=== PATIENT | male | born 1970 | race African-American/Black ===

== ENCOUNTER 2016-11-19 18:16 | Emergency (ER) | payer SELFPAY ==
--- NOTE | 2016-11-19 18:53 | ERRECORD ---
[facility] EMERGENCY RECORD HPI FALL (20:44 ALMO) CHIEF COMPLAINT: Patient presents for evaluation of fall, from standing, landing on both arms. HISTORIAN: History provided by patient. LOCATION: No localizing symptoms. TIME COURSE: Sudden onset of symptoms, 2, days ago, Symptoms have resolved. SEVERITY: NO symptoms. ASSOCIATED WITH: Denies any other complaints. EXACERBATED BY: Patient's condition exacerbated by nothing. RELIEVED BY: Patient's condition relieved by nothing. ROS (20:46 ALMO) CONSTITUTIONAL: Negative constitutional review of systems. EYES: Negative eye review of systems. ENT: Negative ears, nose, throat review of systems. CARDIOVASCULAR: Negative cardiovascular review of systems. RESPIRATORY: Negative respiratory review of systems. GI: Negative gastrointestinal review of systems. MUSCULOSKELETAL: Negative musculoskeletal review of systems. NEUROLOGIC: Negative neurologic review of systems. ENDOCRINE: Negative endocrine review of systems. HEMO/LYMPHATIC: Normal hematologic/lymphatic system review. ALLERGIC/IMMUNOLOGIC: Normal allergy/immunologic system review. NOTES: All systems reviewed, negative except as described above. PAST MEDICAL HISTORY (18:24 MDEB) MEDICAL HISTORY: No past medical history, Flu vaccine not up to date, Tetanus immunization up to date, Pneumococcal vaccine not up to date, No past medical history. MALE SURGICAL HISTORY: Patient has no surgical history, Patient has no surgical history. PSYCHIATRIC HISTORY: No previous psychiatric history. SOCIAL HISTORY: Patient drinks socially, every week, Patient denies drug use, Patient currently uses tobacco, smokes cigarettes, Lives at home, with family, Patient drinks socially, every week, Patient denies drug use, Patient currently uses tobacco, smokes cigarettes, daily, Patient smokes 1/2 packs per day, Lives at home, with family. KNOWN ALLERGIES No Known Drug Allergies (Unconfirmed) CURRENT MEDICATIONS No recorded medications VITAL SIGNS (18:22 MDEB) VITAL SIGNS: BP: 162/97, Pulse: 78, Resp: 20, Temp: 99.2 (Tympanic), Pain: 0, O2 sat: 98 on Room Air, Time: 11/19/2016 18:22. PHYSICAL EXAM (20:47 ALMO) &a-1R&a+25V*p+0X*m2080N*c202B*c15G*c2P*p-0X&a-25V&a+1R Name: Onel Nunez : 1970 [facility] MedRec: [id number] AcctNum: [id number] Prepared: FriDec 03, 2016 18:46 by Interface Page 1 of 2 pMD [facility] EMERGENCY RECORD CONSTITUTIONAL: Vital signs reviewed. HEAD: Head exam normal. EYES: Eye exam normal. ENT: ENT exam normal. NECK: Neck exam normal. RESPIRATORY CHEST: Respiratory and chest exam normal. CARDIOVASCULAR: Cardiovascular assessment normal. ABDOMEN MALE: Abdominal exam normal. BACK: Back exam normal. UPPER EXTREMITY: Upper extremity exam normal. LOWER EXTREMITY: Lower extremity exam normal. SKIN: Skin exam normal. PSYCHIATRIC: Psychiatric exam included findings of patient oriented to person place and time. PROBLEM LIST No recorded problems DIAGNOSIS (18:46 GDUN) FINAL: PRIMARY: Well exam. PRESCRIPTION No recorded prescriptions DISPOSITION PATIENT: Disposition Type: Discharge, Disposition: *Discharge Home. (18:34 GDUN) Patient left the department. (18:48 GDUN) Singh: ROSSY=MD Hector, Joey GDUN=FRANK Donovan, Wiley ZAVALETAEB=FRANK Villafana, Kendy &a-1R&a+25V*p+0X*q8735L*c202B*c15G*c2P*p-0X&a-25V&a+1R Name: Onel Nunez : 1970 6 MedRec: [id number] AcctNum: [id number] Prepared: FriDec 03, 2016 18:46 by Interface Page 2 of 2 pMD MTDD
--- NOTE | 2016-11-19 19:02 | PICIS ---
[facility] EMERGENCY RECORD TRIAGE (18:24 MDEB) PATIENT: NAME: Onel Nunez, AGE: 46, GENDER: male, : Fri1970, TIME OF GREET: FriNov 19, 2016 18:17, PREFERRED LANGUAGE: Belgian, RACE: Black or , ETHNICITY: Not or , FALL RISK: NO, ECODE BILLING MAP: [facility], SSN: [id number], Zip Code: [address], KG WEIGHT: 70.31, PHONE: , , , PERSON ID: [id number], PCP: NO PCP. (18:24 MDEB) TRIAGE NOTES: NEEDS RELEASE TO GO BACK TO WORK AT [employer] - PT FELL ON FRIDAY - DENIES LOC OR PAIN TODAY. (18:24 MDEB) COMPLAINT: FALL. (18:24 MDEB) ADMISSION: URGENCY: 4 Non Urgent, ADMISSION SOURCE: Home, TRANSPORT: Walk-in, BED: TRIAGE. (18:24 MDEB) PAIN: Notes: DENIES. (18:24 MDEB) TRIAGE SCREENING: Patient denies suicidal ideation, Patient denies presence of domestic violence. (18:24 MDEB) PROVIDERS: TRIAGE NURSE: Kendy Villafana RN. (18:24 MDEB) VITAL SIGNS: BP 162/97, Pulse 78, Resp 20, Temp 99.2, (Tympanic), Pain 0, O2 Sat 98, on Room Air, Time 11/19/2016 18:22. (18:22 MDEB) PREVIOUS VISIT ALLERGIES: No Known Drug Allergies. (18:24 MDEB) KNOWN ALLERGIES No Known Drug Allergies (Unconfirmed) CURRENT MEDICATIONS No recorded medications VITAL SIGNS (18:22 MDEB) VITAL SIGNS: BP: 162/97, Pulse: 78, Resp: 20, Temp: 99.2 (Tympanic), Pain: 0, O2 sat: 98 on Room Air, Time: 11/19/2016 18:22. NURSING ASSESSMENT: HEAD-TO-TOE (18:33 MDEB) CONSTITUTIONAL: Patient arrives ambulatory, Gait steady, History obtained from patient, Patient appears comfortable, Patient cooperative, Patient alert, Oriented to person, place and time, Skin warm, Skin dry, Skin normal in color, Mucous membranes pink, Mucous membranes moist, Patient is well-groomed, Patient complains of NEEDS NOTE TO GO TO WORK, PT REPORTED FALLING ON [employer] PROPERTY ON FRIDAY, THEY REQUIRE A WORK RELEASE FOR HIM TO RETURN TO WORK. PAIN: Patient rates pain as 0 out of 10, REPORTS NO LOC AT TIME. DENIES PAIN. BRUISING OR CONTUSIONS. SKIN: Skin assessment findings include skin warm, Skin dry, Skin normal in color. ENT: Ear assessment findings include ear normal to inspection, Nasal assessment findings include nose normal to inspection, Mouth and throat assessment findings include mouth inspection normal. NECK: Neck assessment findings include trachea midline. RESPIRATORY/CHEST: Respiratory assessment findings include &a-1R&a+25V*p+0X*w0184U*c202B*c15G*c2P*p-0X&a-25V&a+1R Name: Onel Nunez : 1970 M46 MedRec: [id number] AcctNum: [id number] Prepared: Rebecca Dec 03, 2016 18:46 by Interface Page 1 of [address] [facility] EMERGENCY RECORD respiratory effort easy, Respirations regular, Conversing normally, Neck and chest exam findings include trachea midline, Chest expansion equal, Chest movement symmetrical. CARDIOVASCULAR: Cardiovascular assessment findings include heart rate normal. ABDOMEN: Abdomen assessment findings include abdomen symmetrical, Abdomen soft. GENITOURINARY MALE: Notes: DEFERRED. LEFT UPPER EXTREMITY: Left upper extremity assessment findings include capillary refill less than 2 seconds, Skin color normal to hand, Skin temperature to hand warm, Distal sensation intact, Muscle tone normal. RIGHT UPPER EXTREMITY: Right upper extremity assessment findings include capillary refill less than 2 seconds, Skin color normal to hand, Skin temperature to hand warm, Distal sensation intact, Muscle tone normal. LEFT LOWER EXTREMITY: Left lower extremity assessment findings include capillary refill less than 2 seconds, Skin color normal, Skin temperature warm, Distal sensation intact, Muscle tone normal. RIGHT LOWER EXTREMITY: Right lower extremity assessment findings include capillary refill less than 2 seconds, Skin color normal, Skin temperature warm, Distal sensation intact, Muscle tone normal. PSYCH/SOCIAL: Psychiatric/social assessment findings include affect normal. NOTES: Emotional support needed and given, Patient tolerated procedure well. SAFETY: Cart/Stretcher in lowest position, Call light within reach, Hospital ID band on. NURSING PROCEDURE: DISCHARGE NOTE (18:51 MDEB) DISCHARGE: Patient discharged to home, ambulating without assistance, driving self, unaccompanied, Summary of Care printed/ provided, Patient requested and was provided an electronic copy of Discharge Instructions, Transition record given to patient, Discharge instructions given to patient, Above person(s) verbalized understanding of discharge instructions and follow-up care, Patient treated and evaluated by physician. BELONGINGS: Belongings remain with patient, Valuables remain with patient. NOTES: Emotional support needed and given, Patient tolerated procedure well. HPI FALL (20:44 ALMO) CHIEF COMPLAINT: Patient presents for evaluation of fall, from standing, landing on both arms. HISTORIAN: History provided by patient. LOCATION: No localizing symptoms. TIME COURSE: Sudden onset of symptoms, 2, days ago, Symptoms have resolved. SEVERITY: NO symptoms. ASSOCIATED WITH: Denies any other complaints. EXACERBATED BY: &a-1R&a+25V*p+0X*q8283K*c202B*c15G*c2P*p-0X&a-25V&a+1R Name: Onel Nunez : 1970 6 MedRec: [id number] AcctNum: [id number] Prepared: Rebecca Dec 03, 2016 18:46 by Interface Page 2 of [address] [facility] EMERGENCY RECORD Patient's condition exacerbated by nothing. RELIEVED BY: Patient's condition relieved by nothing. ROS (20:46 ALMO) CONSTITUTIONAL: Negative constitutional review of systems. EYES: Negative eye review of systems. ENT: Negative ears, nose, throat review of systems. CARDIOVASCULAR: Negative cardiovascular review of systems. RESPIRATORY: Negative respiratory review of systems. GI: Negative gastrointestinal review of systems. MUSCULOSKELETAL: Negative musculoskeletal review of systems. NEUROLOGIC: Negative neurologic review of systems. ENDOCRINE: Negative endocrine review of systems. HEMO/LYMPHATIC: Normal hematologic/lymphatic system review. ALLERGIC/IMMUNOLOGIC: Normal allergy/immunologic system review. NOTES: All systems reviewed, negative except as described above. PAST MEDICAL HISTORY (18:24 MDEB) MEDICAL HISTORY: No past medical history, Flu vaccine not up to date, Tetanus immunization up to date, Pneumococcal vaccine not up to date, No past medical history. MALE SURGICAL HISTORY: Patient has no surgical history, Patient has no surgical history. PSYCHIATRIC HISTORY: No previous psychiatric history. SOCIAL HISTORY: Patient drinks socially, every week, Patient denies drug use, Patient currently uses tobacco, smokes cigarettes, Lives at home, with family, Patient drinks socially, every week, Patient denies drug use, Patient currently uses tobacco, smokes cigarettes, daily, Patient smokes 1/2 packs per day, Lives at home, with family. PHYSICAL EXAM (20:47 ALMO) CONSTITUTIONAL: Vital signs reviewed. HEAD: Head exam normal. EYES: Eye exam normal. ENT: ENT exam normal. NECK: Neck exam normal. RESPIRATORY CHEST: Respiratory and chest exam normal. CARDIOVASCULAR: Cardiovascular assessment normal. ABDOMEN MALE: Abdominal exam normal. BACK: Back exam normal. UPPER EXTREMITY: Upper extremity exam normal. LOWER EXTREMITY: Lower extremity exam normal. SKIN: Skin exam normal. PSYCHIATRIC: Psychiatric exam included findings of patient oriented to person place and time. EVENTS TRANSFER: Triage to Emergency Triage. (FriNov 19, 2016 18:24 MDEB) &a-1R&a+25V*p+0X*c5074B*c202B*c15G*c2P*p-0X&a-25V&a+1R Name: Onel Nunez : 1970 M46 MedRec: [id number] AcctNum: [id number] Prepared: FriDec 03, 2016 18:46 by Interface Page 3 of [address] [facility] EMERGENCY RECORD Emergency Triage to Main ED -04. (18:30 GDUN) Removed from Emergency Main ED -04. (18:48 GDUN) PROBLEM LIST No recorded problems DIAGNOSIS (18:46 GDUN) FINAL: PRIMARY: Well exam. DISPOSITION PATIENT: Disposition Type: Discharge, Disposition: *Discharge Home. (18:34 GDUN) Patient left the department. (18:48 GDUN) INSTRUCTION (18:47 GDUN) DISCHARGE: WORK RELEASE FORM. FOLLOWUP: [facility], -, Primary Care Referral Line, , Follow up with Primary Care Physician as needed. SPECIAL: Follow-up with your PCP May return to work. PRESCRIPTION No recorded prescriptions IMAGING (18:52 GDUN) *DISCHARGE INSTRUCTIONS RECEIPT: Image captured from scanner. *SUPPLY CHARGE SHEET: Image captured from scanner. ADMIN DIGITAL SIGNATURE: MD Young Alberto. (20:49 ALMO) MD Young Alberto. (FriDec 03, 2016 18:41 ROSSY) Singh: ROSSY=MD Young Alberto GDUN=FRANK Donovan, Wiley RAMOS=FRANK Villafana, Kendy &a-1R&a+25V*p+0X*i4203U*c202B*c15G*c2P*p-0X&a-25V&a+1R Name: Onel Nunez : 1970 M46 MedRec: [id number] AcctNum: [id number] Prepared: Rebecca Dec 03, 2016 18:46 by Interface Page 4 of 4 pMD MTDD
== END 2016-11-19 18:51 | disposition home or self-care (01) ==
LOC: MADERS 18:16
DX: Z04.3 Encounter for examination and observation following other accident (principal); F17.210 Nicotine dependence, cigarettes, uncomplicated; W18.30XA Fall on same level, unspecified, initial encounter
CPT/HCPCS: 99283

== ENCOUNTER 2019-01-09 17:55 | Emergency (ER) | payer SELFPAY ==
[2019-01-09] MEDS ORDERED: Benzonatate 100 MG CAP ONE (20:27)
[2019-01-09] MEDS ORDERED: Azithromycin 250 MG TAB ONE (20:27)
== END 2019-01-09 20:34 | disposition home or self-care (01) ==
LOC: MADERS 17:55
DX: J20.9 Acute bronchitis, unspecified (principal); F17.210 Nicotine dependence, cigarettes, uncomplicated
CPT/HCPCS: 99284

== ENCOUNTER 2019-02-02 16:01 | Emergency (ER) | payer SELFPAY ==
[2019-02-02 17:28] LABS: #Basophils 0.2 thou/uL (0.0-0.2); #Eosinphils 0.2 thou/uL (0.0-0.7); #Lymphocytes 2.2 thou/uL (1.20-3.40); #Monocytes 0.4 thou/uL (0.11-0.59); %Basophils 2.2 % (0.0-1.0); %Eosinophils 2.7 % (0.0-10.0); %Lymphocytes 24.2 % (21.0-51.0); %Monocytes 4.9 % (0.0-10.0); %Neutrophils 66.1 % (42.0-75.0); Hemoglobin 13.4 g/dL (14.0-18.0); Mean Corpuscular HGB CONC 30.6 g/dL (32.0-36.0); Mean Corpuscular Hemoglobin 25.9 pg (27.0-31.0); Mean Corpuscular Volume 84.9 fL (78.0-98.0); Mean Platelet Volume 6.9 fL (7.4-10.4); Platelet Count 282 thou/uL (130-400); RBC Distribution Width 15.9 % (11.5-14.5); Red Blood Cell (RBC) Count 5.18 mill/uL (4.70-6.10)
[2019-02-02 17:49] LABS: ALT (SGPT) 8 U/L (8-55); AST (SGOT) 12 U/L (5-34); Albumin 4.2 g/dL (3.5-5.0); Alkaline Phosphatase 77 U/L (40-150); Anion Gap 12 mmol/L (10-20); BUN (Urea Nitrogen) 18 mg/dL (8.9-20.6); Bilirubin, Total 0.4 mg/dL (0.2-1.2); Calc. Creatinine Clearance 0 mL/min (70-130); Calcium 9.9 mg/dL (7.8-10.44); Carbon Dioxide 29 mmol/L (22-29); Chloride 107 mmol/L (98-107); Estimated GFR-MDRD Greater than 90; Globulin 3.3 g/dL (2.4-3.5); Glucose 186 mg/dL (70-105); Lipase 26 U/L (8-78); Potassium 4.4 mmol/L (3.5-5.1); Protein, Total 7.5 g/dL (6.0-8.3); Sodium 144 mmol/L (136-145)
[2019-02-02] MEDS ORDERED: Ondansetron ODT 4 MG TAB ONE (18:47)
== END 2019-02-02 18:50 | disposition home or self-care (01) ==
LOC: MADERS 16:01
DX: R11.0 Nausea (principal); R19.7 Diarrhea, unspecified; J44.9 Chronic obstructive pulmonary disease, unspecified; F17.210 Nicotine dependence, cigarettes, uncomplicated
CPT/HCPCS: 36415; 80053; 83690; 85025; 99284; Q0162

== ENCOUNTER 2019-07-20 11:16 | Emergency (ER) | payer SELFPAY | END 2019-07-20 12:00 | disposition left against medical advice (07) | LOC: MADERS 11:16 | DX: K08.89 Other specified disorders of teeth and supporting structures (principal); R42 Dizziness and giddiness | CPT/HCPCS: 99283 ==

== ENCOUNTER 2019-07-20 13:53 | Emergency (ER) | payer SELFPAY | END 2019-07-20 15:26 | disposition home or self-care (01) | LOC: MADERS 13:53 | DX: K04.7 Periapical abscess without sinus (principal); L03.211 Cellulitis of face; R42 Dizziness and giddiness; F17.210 Nicotine dependence, cigarettes, uncomplicated | CPT/HCPCS: 99283 ==

== ENCOUNTER 2021-07-30 08:55 | Emergency (ER) | payer SELFPAY | END 2021-07-30 10:03 | disposition home or self-care (01) | LOC: MADERS 08:55 | DX: S46.912A Strain of unspecified muscle, fascia and tendon at shoulder and upper arm level, left arm, initial encounter (principal); I10 Essential (primary) hypertension; J44.9 Chronic obstructive pulmonary disease, unspecified; F17.210 Nicotine dependence, cigarettes, uncomplicated; X50.1XXA Overexertion from prolonged static or awkward postures, initial encounter; Y99.0 Civilian activity done for income or pay ==

== ENCOUNTER 2023-08-04 14:22 | Emergency (ER) | payer OTHER | END 2023-08-04 15:04 | disposition home or self-care (01) | LOC: MADERS 14:22 | DX: K05.10 Chronic gingivitis, plaque induced (principal); K02.9 Dental caries, unspecified; R03.0 Elevated blood-pressure reading, without diagnosis of hypertension; J44.9 Chronic obstructive pulmonary disease, unspecified; F17.210 Nicotine dependence, cigarettes, uncomplicated | CPT/HCPCS: 99282 ==

== ENCOUNTER 2023-09-28 20:54 | Emergency (ER) | payer OTHER ==
[2023-09-28] MEDS ORDERED: Ipratropium/Albuterol 3 ML NEB ONE (21:41)
[2023-09-28] MEDS ORDERED: Dexamethasone 4 MG TAB ONE (21:42)
[2023-09-28] MEDS ORDERED: Albuterol 200 PUFF (6.7GM INHALER) ONE (22:26)
== END 2023-09-28 22:31 | disposition home or self-care (01) ==
LOC: MADERS 20:54
DX: J44.1 Chronic obstructive pulmonary disease with (acute) exacerbation (principal); F17.210 Nicotine dependence, cigarettes, uncomplicated
CPT/HCPCS: 71046; J7611; J7620; J8540

== ENCOUNTER 2023-11-30 21:15 | Emergency (ER) | payer OTHER ==
[2023-11-30] MEDS ORDERED: Tetracaine 0.5% PF 4 ML BOT ONE (21:21)
[2023-11-30] MEDS ORDERED: Fluorescein Opthalmic Strip ONE (21:22)
== END 2023-11-30 22:01 | disposition home or self-care (01) ==
LOC: MADERS 21:15
DX: S00.11XA Contusion of right eyelid and periocular area, initial encounter (principal); H20.9 Unspecified iridocyclitis; W26.9XXA Contact with unspecified sharp object(s), initial encounter
CPT/HCPCS: 99283

== ENCOUNTER 2023-12-08 12:31 | Emergency (ER) | payer OTHER ==
[2023-12-08] MEDS ORDERED: Tetracaine 0.5% PF 4 ML BOT ONE (12:43)
[2023-12-08] MEDS ORDERED: Fluorescein Opthalmic Strip ONE (12:43)
== END 2023-12-08 13:00 | disposition home or self-care (01) ==
LOC: MADERS 12:31
DX: H20.9 Unspecified iridocyclitis (principal); J44.9 Chronic obstructive pulmonary disease, unspecified; F17.210 Nicotine dependence, cigarettes, uncomplicated
CPT/HCPCS: 99283

== ENCOUNTER 2024-06-23 14:10 | Emergency (ER) | payer OTHER | END 2024-06-23 14:40 | disposition home or self-care (01) | LOC: MADERS 14:10 | DX: K08.89 Other specified disorders of teeth and supporting structures (principal); J44.9 Chronic obstructive pulmonary disease, unspecified; Z01.30 Encounter for examination of blood pressure without abnormal findings; F17.210 Nicotine dependence, cigarettes, uncomplicated | CPT/HCPCS: 99283 ==

== ENCOUNTER 2025-07-02 17:45 | Emergency (ER) | payer OTHER ==
[2025-07-02] MEDS ORDERED: Bacitracin 1 PK ONE (18:20)
[2025-07-02] MEDS ORDERED: Acetaminophen 325 MG TAB ONE (18:20)
== END 2025-07-02 19:00 | disposition home or self-care (01) ==
LOC: MADERS 17:45
DX: S52.502A Unspecified fracture of the lower end of left radius, initial encounter for closed fracture (principal); S62.637A Displaced fracture of distal phalanx of left little finger, initial encounter for closed fracture; J44.9 Chronic obstructive pulmonary disease, unspecified; F17.210 Nicotine dependence, cigarettes, uncomplicated; V28.01XA Electric (assisted) bicycle driver injured in noncollision transport accident in nontraffic accident, initial encounter; Z79.51 Long term (current) use of inhaled steroids
CPT/HCPCS: 12011; 26750; 29125